=== PATIENT | male | born 1985 | race Caucasian/White ===

== ENCOUNTER → 2017-09-21 | Outpatient (CLI) | payer OTHER ==
[~2017-09-21] MED LIST: BACI500O11 TOP
== END | disposition home or self-care (01) ==
LOC: C.LAB 22:20
DX: Z02.83 Encounter for blood-alcohol and blood-drug test (principal)

== ENCOUNTER → 2017-10-04 | Outpatient (CLI) | payer BC ==
--- NOTE | 2017-10-04 09:18 | DIAGNOSTIC IMAGING REPORT ---
R HAND MIN 3 VIEWS ROUTINE CLINICAL HISTORY: [id number] right hand pain status post trauma COMPARISON: None. DISCUSSION: No acute fractures or dislocations are visualized. IMPRESSION: No fractures identified. Electronically signed by: Nikunj Shaw M.D. 10/04/2017 9:16 AM Dictated Date/Time: 10/04/2017 9:15 AM
--- NOTE | 2017-10-04 09:22 | DIAGNOSTIC IMAGING REPORT ---
RIGHT KNEE 3 VIEWS CLINICAL HISTORY: Right knee injury. FINDINGS: AP, lateral, and sunrise views of the right knee are obtained. No prior studies are available for comparison at the time of dictation. The skeletal structures are well mineralized. No fracture is seen. The joint spaces of the knee are well-maintained. No joint effusion is identified. The overlying soft tissues are within normal limits. IMPRESSION: No acute bony abnormality is identified. Electronically signed by: Angel Urrutia M.D. 10/04/2017 9:20 AM Dictated Date/Time: 10/04/2017 9:19 AM
== END | disposition home or self-care (01) ==
LOC: C.RAD 08:15
PROVIDERS: ATTEND Nurse Practitioner
DX: S69.91XA Unspecified injury of right wrist, hand and finger(s), initial encounter (principal); S89.91XA Unspecified injury of right lower leg, initial encounter; X58.XXXA Exposure to other specified factors, initial encounter

== ENCOUNTER → 2018-06-29 | Day surgery (SDC) | payer BC ==
[2018-05-24 09:24] VITALS: Ht 182.9 cm; Wt 104.5 kg
[~2018-06-29] VITALS: Ht 182.9 cm; Wt 104.5 kg
[~2018-06-29] MED LIST changes: +ASPI325T4 PO; +ATROPINE SULFATE 0.1 MG/ML 5ML SYR IV PRN; -BACI500O11 TOP; +CEFAZOLIN 2000MG IV PUSH 15 ML IV SCH; +DEXAMETHASONE SOD INJ 4 MG/ML VIAL ONE; +EpHEDrine SULFATE INJ 50 MG/ML AMP IV PRN; +FENTANYL CITRATE INJ 50 MCG/1 ML 2 ML VIAL ONE; +FLUMAZENIL 0.1 MG/1 ML 10 ML VIAL IV PRN; +HYDR-5688 PO; +LACTATED RINGER'S 1000ML 1,000 ML IV SCH; +LIDOCAINE HCL 2% 2 ML VIAL (20MG/ML) ONE; +LIDOCAINE/EPINEPHRINE 1% 20 ML VIAL ONE; +MIDAZOLAM HCL 1 MG/ML 2ML VIAL ONE; +MoRPHine SULFATE 2 MG/ML CARP IV PRN; +MoRPHine SULFATE 4 MG/ML 1 ML CARP\\VIAL IV PRN; +NALOXONE HCL 0.4 MG/1 ML VIAL/CARP IV PRN; +ONDANSETRON INJ 2 MG/ML 2 ML VIAL IV PRN; +ONDANSETRON INJ 2 MG/ML 2 ML VIAL ONE; +OXYCODONE/ACETAMINOPHEN 5-325 TAB PO PRN; +PROMETHAZINE HCL INJ 12.5 MG in SODIUM CHLORIDE 0.9% 50ML 50 ML IV PRN; +PROPOFOL IV EMULSION 10 MG/ML 20 ML VIAL ONE; +SODIUM CHLORIDE 0.9% 1000ML 1,000 ML IV SCH
--- NOTE | 2018-06-29 06:53 | History & Physical Bridge Note ---
H&P Re-Evaluation Bridge Note: I have examined the patient, reviewed the History & Physical and in the interval since the performance of the History & Physical I have noted the following changes of clinical significance: No changes noted
--- NOTE | 2018-06-29 07:57 | [facility] Post Operative Brief Note ---
Immediate Operative Summary Operative Date Jun 29, 2018. Pre-Operative Diagnosis Right knee medial meniscus tear Post-Operative Diagnosis same as preop Procedure(s) Performed Right Knee Arthroscopy, Partial Medial Meniscectomy Surgeon Dr. Sherman Wildlife Photographer Surgeon(s) ARSLAN Kumar Estimated Blood Loss 5ml Findings Consistent with Post-Op Diagnosis Specimens none per surgeon Drains None Anesthesia Type General Complication(s) none Disposition Accompanied Pt To Recover: no Disposition: Recovery Room / PACU
--- NOTE | 2018-06-29 08:12 | Discharge Instructions-SurgCtr ---
Discharge Instructions Date of Service Jun 29, 2018. Visit Reason for Visit: Right Knee Medial Meniscus Tear Discharge Discharge Diagnosis / Problem: Right knee medial meniscus tear Discharge Goals Goal(s): Decrease discomfort, Improve function, Increase independence Activity Recommendations Activity Limitations: per Instructions/Follow-up section Weightbearing Status: Right weightbearing (as tolerated) Anesthesia . Post Anesthesia Instructions: If you have had General Anesthesia or IV Sedation: * Do not drive today. * Resume driving when surgeon permits. * Do not make important decisions or sign legal documents today. * Call surgeon for: 1. Temperature elevations greater than 101 degrees F. 2. Uncontrollable pain. 3. Excessive bleeding. 4. Persistent nausea and vomiting. 5. Medication intolerance (nausea, vomiting or rash). * For nausea and vomiting use only clear liquids such as: tea, soda, bouillon until nausea subsides, then gradually increase diet as tolerated. * If you have any concerns or questions, call your surgeon's office. If physician is unavailable and it is an emergency, call 911 or go to the nearest emergency room. . Instructions / Follow-Up Instructions / Follow-Up The following are instructions to follow after your Arthroscopic Knee Surgery. ACTIVITY RECOMMENDATIONS: * Minimize activity until your first visit after surgery. * No excessive walking, jogging, sports or laboring. * Return to activity is individualized. Most patients are able to return to every day activities within one month. * Return to sports or intensive labor usually occurs at 2-3 months. * Driving is not permitted until at least your first postoperative visit at a minimum. Please ask your doctor when it is safe to resume driving. If you have an automatic vehicle and your left leg has been operated on, then you may begin driving as soon as you are comfortable and can drive safely. SCHOOL/WORK RECOMMENDATIONS: * You may return to sedentary work or school when you are feeling more comfortable. This is usually 3-7 days after surgery. * Expect increased discomfort with increased activity. Continue to elevate and ice the leg as much as possible. MEDICATIONS: * You will have a prescription for pain medication and an anti-inflammatory medication after surgery. * Use the pain medication for severe pain . Once the pain medication has run out, try to use an anti-inflammatory medication. If this is not effective, contact the office for assistance. * The pain medication may cause nausea, constipation and drowsiness. You should see how they affect you before driving or similar activity. * The anti-inflammatory medication may cause stomach upset and bleeding. If this occurs let your doctor know immediately . * Take a stool softener like Colace or a laxative like Senokot to prevent constipation. *Take aspirin 325 mg twice daily with meals for 21 days after surgery. May start aspirin the night of surgery if tolerating food, otherwise start the following morning. DIET: * Resume previous diet. SPECIAL CARE: ICE: You have the option of an ice cooler, gel packs or ice bags. * If you have an ice cooler, refer to the instructions for that device. The ice cooler may be used continuously. * If you do not have an ice cooler, you will need to use ice bags or gel packs. Do not apply ice directly to the skin. Use a thin dressing or oclleen shirt between the skin and ice bag. Apply ice for 20-30 minutes and repeat every 2-4 hours. This is especially important for the first 7-10 days after surgery. Once the pain improves, use ice as needed. ELEVATION: * Keep your leg elevated at or above the level of your heart as much as possible. * Expect some increased discomfort and swelling if you are standing for any length of time. * When lying down, avoid placing anything under your knee. Rather, prop your leg up by placing several pillows under your heel or calf. DRESSING: * Your dressing will be changed at your first therapy appointment approximately 4-5 days after surgery. Band-aids, tape strips or gauze may be applied. You may then change your dressing daily. * Reapply dressing followed by the Arben wrap or Tubi-ring making machine operator stockinet and EBIce cooling pad (if chosen). * Always wash your hands prior to touching the incision area. * Once the stitches are removed, you may leave the wound open to air or cover with an Arben wrap or Tubi-ring making machine operator stockinet. * If you have been given a white elastic stocking (DEVENDRA hose), wear as much as possible for the first 1-3 weeks depending on swelling. * Expect some bloody drainage for the first few days after surgery. * Leave the tape strips, if present, in place for 5-7 days. * Band-aids and gauze may be changed daily. CRUTCHES: * You will need to use crutches after surgery. * You may gradually progress to full weight bearing as tolerated and wean off the crutches unless otherwise advised. * Your therapist can provide assistance weaning off crutches. * Patients who have a microfracture done may need to be toe-touch weight- bearing for 4-6 weeks. BATHING: * You may shower or sponge-bathe immediately after surgery. * The dressing will need to be covered with a plastic bag or plastic wrap until the dressing is changed on the fourth or fifth day after surgery. * Once the dressing has been changed on the fourth or fifth day after surgery, you may shower and get the incision wet. * Wash with regular soap and water. * Do not bathe (submerge the incision), soak, swim or use a hot tub until the incision is completely healed over with normal skin and the doctor has given the OK to proceed. * There is no need to apply any ointments, powders or salves to your incision. * Do not apply alcohol or hydrogen peroxide directly to the incision. * Diluted peroxide (50:50 mixture with sterile saline) may be used to clean dried blood from around the incision area. BRACE: * Bracing is generally not needed after routine Arthroscopic Knee surgery. THERAPY: * You will begin therapy four or five days after surgery. * Organized therapy with the therapist is important for the first 4-6 weeks after surgery. During that time you will attend therapy 1-3 times per week. * You will also need to do daily exercises for range of motion and strength as instructed. PROBLEMS/QUESTIONS: * If you have any problems such as severe pain, numbness, tingling or high fevers or if you have any questions, please contact the office at [phone]. * It is not uncommon to have some numbness and tingling after the surgery especially if you have had a nerve block done. This should gradually improve over the first 1- 2 days. If this persists longer or worsens please contact the office. FOLLOW UP VISIT: * If not already scheduled, please call the office at to schedule a follow-up appointment for 10 days, 6 weeks and 3 months after surgery. *You have start physical therapy in July 04, 2018 at 8:30 AM. *You have a follow-up appointment scheduled with Dr. Sherman on July 12, 2018 at 11:45 AM. Diet Recommendations Home Diet: no limitations, resume previous diet Procedures Procedures Performed: Right Knee Arthroscopy, Partial Medial Meniscectomy Pending Studies Studies pending at discharge: no Medical Emergencies . Who to Call and When: Medical Emergencies: If at any time you feel your situation is an emergency, please call 911 immediately. . Non-Emergent Contact Non-Emergency issues call your: Surgeon Call Non-Emergent contact if: temperature is above 101, your pain is not controlled, your pain is worsening, your pain is unusual for you, your pain is concerning you, wound has increased drainage, wound has increased redness, wound has increased pain, you have any medication questions . . "Provider Documentation" section prepared by Niurka Lyle. . [place] Drug Monitoring Program Search Results: patient reviewed within database, no issues identified
--- NOTE | 2018-06-29 08:14 | [facility] Operative Report ---
Operative Report Operative Date Jun 29, 2018. Pre-Operative Diagnosis Right knee medial meniscus tear Post-Operative Diagnosis same as preop Procedure(s) Performed Right Knee Arthroscopy, Partial Medial Meniscectomy Surgeon Dr. Sherman Application Trainer Surgeon(s) ARSLAN Kumar Estimated Blood Loss 5ml Findings Medial meniscus tear Specimens none per surgeon Drains None Anesthesia Type General Complication(s) none Disposition no Recovery Room / PACU Indications Patient is a 33-year-old male with complaints of right knee pain x-rays were found to be normal. MRI was completed and found to have a medial meniscus tear. Surgical intervention recommended. He agreed to proceed with surgery. Risks and complications were discussed and informed consent was obtained. Description of Procedure Patient was taken to the operating room and placed under general anesthesia. He was given 2 g of IV Ancef for surgical prophylaxis. Timeout was performed. He was prepped and draped in routine sterile fashion. I was present during the entire case, please see Dr. Sherman's operative report for further detail. Patient was awakened and transferred to recovery room in stable condition. I attest to the content of the Intraoperative Record and any orders documented therein. Any exceptions are noted below.
[2018-06-29] MEDS: HYDROmorphone INJ 0.5 MG/0.5 ML SYR IV PRN ×2 (08:25→08:33)
--- NOTE | 2018-06-29 08:58 | Anesthesia Progress Nt - [facility] ---
Anesthesia Post Op Note Date & Time Jun 29, 2018 at 08:58 Vital Signs Pain Intensity: 2 Vital Signs Past 12 Hours Date Time Temp Pulse Resp B/P (MAP) Pulse Ox O2 Delivery O2 Flow Rate FiO2 06/29/18 08:53 65 13 18 08:53 68 13 100 18 08:52 70 10 100 18 08:52 69 10 06/29/18 08:51 143/90 06/29/18 08:49 74 15 100 06/29/18 08:49 74 15 06/29/18 08:48 66 13 06/29/18 08:48 67 13 100 06/29/18 08:46 147/88 06/29/18 08:46 37.2 69 20 147/88 100 Room Air 06/29/18 08:43 71 16 06/29/18 08:43 69 16 100 06/29/18 08:42 65 10 100 06/29/18 08:42 65 10 06/29/18 08:41 139/81 06/29/18 08:38 65 11 100 06/29/18 08:38 66 11 06/29/18 08:37 72 15 06/29/18 08:37 78 15 100 06/29/18 08:36 144/92 06/29/18 08:35 67 14 100 18 08:35 67 14 06/29/18 08:34 61 13 100 1618 08:34 62 13 18 08:31 139/91 06/29/18 08:29 64 13 06/29/18 08:29 64 13 100 18 08:28 70 15 100 06/29/18 08:28 68 15 1618 08:27 69 12 1618 08:27 71 12 146/93 100 1618 08:22 74 16 1618 08:22 78 16 100 1618 08:21 139/93 1618 08:17 76 18 16/18 08:17 74 18 100 1618 08:16 135/87 16/18 08:15 76 13 1618 08:15 76 13 100 1618 08:11 134/74 16 08:10 36.6 72 12 134/74 100 Mask 8 06/29/18 06:21 36.6 75 18 118/80 (93) 97 Room Air Notes Mental Status: alert / awake / arousable, participated in evaluation Pt Amnestic to Procedure: Yes Nausea / Vomiting: adequately controlled Pain: adequately controlled Airway Patency, RR, SpO2: stable & adequate BP & HR: stable & adequate Hydration State: stable & adequate Anesthetic Complications: no major complications apparent
--- NOTE | 2018-06-29 09:04 | [facility] Operative Report ---
Operative Report Operative Date Jun 29, 2018. Pre-Operative Diagnosis Right knee medial meniscus tear Post-Operative Diagnosis same as preop Procedure(s) Performed Right Knee Arthroscopy, Partial Medial Meniscectomy Surgeon Dr. Sherman Equity Holder Surgeon(s) ARSLAN Kumar Estimated Blood Loss 5ml Findings Complex tear medial meniscus Specimens none per surgeon Anesthesia Laryngeal mask Complication(s) None Disposition Recovery Room / PACU Indications Patient is a 33-year-old male with right knee medial meniscus tear. He is elected to proceed with surgery. Description of Procedure Informed consent obtained. Patient identified. He identified the operative site as the right knee. I marked with my initials. A preoperative surgical timeout was performed. Preop dose of IV antibiotics was given. He was positioned supine on the OR table. No tourniquet was utilized. A lateral post was used for stressing the knee. The leg was prepped and draped in usual sterile fashion. DVT prophylaxis with early mobility and aspirin. 1% lidocaine with epinephrine was injected into the knee joint fat pad and portal sites preoperatively. The exam under anesthesia revealed range of motion 2/0/ 135 with no effusion and intact cruciate and collateral ligament stability. Inferolateral viewing portal superior lateral outflow portal and inferomedial working portals were established. Diagnostic arthroscopy was performed. There is no loose bodies. Suprapatellar pouch normal. Articular surfaces of the patella trochlea femur and tibia normal. Posterior medial lateral compartments normal. Retropatellar fat pad resected. Cruciate ligaments normal. Lateral compartment showed normal meniscus. Popliteal hiatus normal. Medial compartment showed a complex tear the posterior horn of the meniscus with a ruptured undersurface horizontal cleavage tear. Basket forceps and a motorized shaver were utilized to debride this back to a stable balanced and well contoured rim. The inferior flap was resected back to the level closer to the meniscocapsular junction but not completely. The upper flap was partially resected back to more robust tissue. The shaver was run through the knee to tow picker any loose debris. There were no loose unstable or hidden fragments underneath. The orthoscopic instruments removed from the knee. The portals were closed with 4-0 nylon. The leg was cleaned with wet and dry sponges. A soft sterile dressing was applied. Patient was awakened from anesthesia without difficulty and taken to recovery in stable condition. There were no specimens or complications. Counts were correct at the case. Blood loss was minimal. At the conclusion of the operation I spoke to the patient's family and informed them of my findings. Detailed postoperative instructions were given. The patient will be rehabilitated according to the partial meniscectomy protocol protocol. The patient will begin aspirin the night of surgery for DVT prophylaxis. I attest to the content of the Intraoperative Record and any orders documented therein. Any exceptions are noted below.
[2018-06-29 09:10] VITALS: TEMP 36.7
[2018-06-29 09:28] VITALS: BP 125/72; PULSE 77; O2SAT 99
== END | disposition home or self-care (01) ==
LOC: X.SURG 06:11
PROVIDERS: ATTEND Physical Medicine & Rehabilitation Sports Medicine
DX: S83.231A Complex tear of medial meniscus, current injury, right knee, initial encounter (principal); V89.3XXA Person injured in unspecified nonmotor-vehicle accident, traffic, initial encounter; E66.9 Obesity, unspecified; Z68.31 Body mass index [BMI] 31.0-31.9, adult